=== PATIENT | male | born 1950 | race Caucasian/White ===

== ENCOUNTER 2019-11-27 05:29 | Outpatient (CLI) | payer MEDICARE ==
[~2019-11-27] VITALS: Ht 175.3 cm; Wt 68.2 kg
[2019-11-27] MEDS ORDERED: QUET300T44 PO (10:58)
[2019-11-27] MEDS ORDERED: CITA40TA11 PO (10:58)
[2019-11-27] MEDS ORDERED: TMSL.4C PO (10:58)
[2019-11-27] MEDS ORDERED: PANT40TA3 PO (10:58)
== END 2019-11-27 11:10 | disposition home or self-care (01) ==
LOC: PREOP 05:29
PROVIDERS: ATTEND Urology
DX: Z01.818 Encounter for other preprocedural examination (principal)

== ENCOUNTER 2019-12-04 06:49 | Day surgery (SDC) | payer MEDICARE ==
[~2019-12-04] VITALS: Ht 175.3 cm; Wt 68.2 kg
[2019-12-04] VITALS (9 sets, daily range): BP systolic 97–134; BP diastolic 56–83
[~2019-12-04 06:49] MED LIST: CITA40TA11 PO; PANT40TA3 PO; QUET300T44 PO; TMSL.4C PO
--- OUTSIDE RECORDS SUMMARY | 2019-12-04 06:52 | XMS REPORT | Continuity of Care Document ---
Author Organization Unknown Address Unknown Phone Unavailable Allergies Active Description Code Type Severity Reaction Onset Reported/Identified Relationship to Patient Clinical Status Yes No Known Drug Allergies [id number] Drug Allergy Unknown N/A 11/27/2019 Medications There is no data. Problems Date Dx Coded Attending Type Code Diagnosis Diagnosed By 11/27/2019 ANITA MORALES MD Ot Z01.8 18 ENCOUNTER FOR OTHER PREPROCEDURAL EXAMIN 11/28/2019 ANITA MORALES MD Ot Z01.8 18 ENCOUNTER FOR OTHER PREPROCEDURAL EXAMIN 12/02/2019 JOHNNY MIRANDA, JESE Castaneda Ot C61 MALIGNANT NEOPLASM OF PROSTATE Procedures There is no data. Results There is no data. Encounters ACCT No. Visit Date/Time Discharge Status Pt. Type Provider Facility Loc./Unit Complaint [id number] 11/27/2019 05:29:00 020 11:10:00 DIS Outpatient ANITA MORALES MD [facility] PREOP PROSTATE CA [id number] 10/30/2019 13:59:00 020 23:59:59 CLS Outpatient JESE TURNER MD [facility] ONC [id number] 12/04/2019 08:00:00 P EN Preadmit ANITA MORALES MD [facility] SDC PROSTATE CA
[2019-12-04] MEDS ORDERED: LACTATED RINGERS 1,000 ML IV PRN (06:54)
[2019-12-04] MEDS ORDERED: LEVOFLOXACIN 500 MG/100 ML IV 100 ML IV ONE (07:00)
[2019-12-04] MEDS ORDERED: MIDAZOLAM 2 MG/2 ML (VERSED) VIAL ONE (07:04)
[2019-12-04] MEDS ORDERED: fentaNYL INJECTION 100 MCG/2 ML AMP ONE (07:05)
[2019-12-04] MEDS ORDERED: CATHETER FLUSH 10 ML SYR IV PRN (07:15)
--- NOTE | 2019-12-04 07:21 | Progress Note-Pre Operative ---
Pre-Operative Progress Note H&P Reviewed The H&P was reviewed, patient examined and no changes noted. Date Seen by Provider: Dec 04, 2019 Time Seen by Provider: 07:20 Date H&P Reviewed: Dec 04, 2019 Time H&P Reviewed: 07:20 Pre-Operative Diagnosis: CA PROSTATE ANITA MORALES MD Dec 04, 2019 07:21
--- NOTE | 2019-12-04 07:31 | Discharge Inst-Urology ---
Discharge Inst-Urology Reconcile Patient Problems Problems Reviewed?: Yes Final Diagnosis CA PROSTATE Patient Instructions/Follow Up Plan/Assessment/Instructions Discharge with patel and leg bag day time and large bag night time with instructions Come to office Monday 9am to YOLY Patel Please make appointment to been seen in office in 2 weeks. Rest till then Keep bowels soft and moving Increase oral fluids for 48 hours and then as needed. Diet as tolerated. If questions or concerns contact your physician Or seek help at emergency department. ANITA MORALES MD Dec 04, 2019 07:31
--- NOTE | 2019-12-04 07:33 | Progress Note-Post Operative ---
Post-Operative Progess Note Surgeon (s)/Diagnostic Medical Sonographer (s) Surgeon ANITA MORALES MD Diagnostic Medical Sonographer: Janett TURNER Pre-Operative Diagnosis CA PROSTATE Post-Operative Diagnosis SAME Procedure & Operative Findings Date of Procedure 12/04/19 Procedure Performed/Findings BRACHYTHERAPY, CYSTOGRAM, AND PLACEMENT OF SPACE OAR Anesthesia Type GENERAL Estimated Blood Loss Estimated blood loss (mL): NEGLIGIBLE Specimens/Packing Specimens Removed NONE Packing: NONE ANITA MORALES MD Dec 04, 2019 07:32
[2019-12-04] MEDS ORDERED: BACITRACIN OINTMENT 28 GM TUBE ONE (08:04)
[2019-12-04] MEDS ORDERED: CIPR-225 PO (08:31)
[2019-12-04] MEDS ORDERED: PHEN-640 PO (08:31)
[2019-12-04] MEDS ORDERED: LIDOCAINE PF 2% 5 ML (XYLOCAINE) VIAL ONE (09:08)
[2019-12-04] MEDS ORDERED: SEVOFLURANE (ULTANE) 15 ML INHAL SOLN ONE (09:08)
[2019-12-04] MEDS ORDERED: proPOfol 200 MG/20 ML (DIPRIVAN) VIAL IV ONE (09:08)
[2019-12-04] MEDS ORDERED: ONDANSETRON 4 MG/2 ML (SDV) Z0FRAN ONE (09:08)
[2019-12-04] MEDS ORDERED: PHENYLEPHRINE 100 MCG/ML 10 ML (ANESTHESIA) SYR ONE (09:08)
[2019-12-04] MEDS ORDERED: ROCURONIUM 10 MG/ML 5 ML SYRINGE IV ONE (09:08)
[2019-12-04] MEDS ORDERED: IOPAMIDOL 61% 30 ML (ISOVUE 300) VIAL ONE (09:29)
[2019-12-04] MEDS ORDERED: MEPERIDINE (DEMEROL) INJ 50 MG/ML IVP ONE (09:30)
[2019-12-04] MEDS ORDERED: fentaNYL INJECTION 100 MCG/2 ML AMP IVP ONE (09:30)
[2019-12-04] MEDS ORDERED: morphine INJ 10 MG/ML 1ML (SYR OR VIAL) IVP ONE (09:30)
[2019-12-04] MEDS ORDERED: ONDANSETRON 4 MG/2 ML (SDV) Z0FRAN IVP PRN (09:30)
[2019-12-04] MEDS ORDERED: morphine INJ 10 MG/ML 1ML (SYR OR VIAL) ONE (09:30)
--- NOTE | 2019-12-04 10:13 | Diagnostic Imaging Report ---
INDICATION: Intraoperative fluoroscopy during brachytherapy. FINDINGS AND IMPRESSION: A single spot fluoroscopic image was submitted and 29.2 seconds of fluoroscopy time was utilized. Please see procedure report for complete details. Dictated by: Dictated on workstation # [id number]
--- NOTE | 2019-12-06 08:56 | Anesthesia-General Post-Op ---
General Patient Condition Mental Status/LOC: Same as Preop Cardiovascular: Satisfactory Nausea/Vomiting: Absent Respiratory: Satisfactory Pain: Controlled Complications: Absent Post Op Complications Complications None Follow Up Care/Instructions Patient Instructions None needed. Anesthesia/Patient Condition Patient Condition Patient is doing well, no complaints, stable vital signs, no apparent adverse anesthesia problems. No complications reported per nursing. GABBY PAZ CRNA Dec 06, 2019 08:56
== END 2019-12-04 11:25 | disposition home or self-care (01) ==
LOC: SDC 06:49
PROVIDERS: ATTEND Urology
DX: C61 Malignant neoplasm of prostate (principal); Z11.2 Encounter for screening for other bacterial diseases; K21.9 Gastro-esophageal reflux disease without esophagitis; F41.9 Anxiety disorder, unspecified; G25.81 Restless legs syndrome; F32.9 Major depressive disorder, single episode, unspecified; Z87.19 Personal history of other diseases of the digestive system; Z87.891 Personal history of nicotine dependence; Z79.899 Other long term (current) drug therapy
CPT/HCPCS: 76965; 77290; 77318; 77332; 77370; 77470; 77778; 87081

== ENCOUNTER 2020-01-02 10:11 | Outpatient (RCR) | payer MEDICARE ==
[~2020-01-02 10:11] MED LIST changes: +CIPR-225 PO; +PHEN-640 PO
== END 2020-01-28 | disposition home or self-care (01) ==
LOC: ONC 10:11
PROVIDERS: ATTEND Radiology Radiation Oncology
DX: C61 Malignant neoplasm of prostate (principal)
CPT/HCPCS: 76873; 77290; 99205